=== PATIENT | female | born 1995 | race American Indian/Alaskan Native ===

== ENCOUNTER 2017-06-10 17:08 | Emergency (ER) | payer MEDICAID ==
[2017-06-10 17:08] VITALS: BMI 38.3
--- NOTE | 2017-06-10 17:54 | ED PDOC ---
HPI: Female Pain Time Seen by Provider: 06/10/17 17:27 Chief Complaint (Nursing): Female Genitourinary History Per: Patient (states having recurrent vaginal bleeding since her elective at [facility] in early April. She is now . She was seen in the ER at [place] where she had blood work and TV ultrasound. She was told to followup with document manager. Since being home after her evaluation at 2-3am, she has had to change her pads two times. Pictures show that they are moderately soaked. She denies pain or fever.) History/Exam Limitations: no limitations Onset/Duration Of Symptoms: Waxing/Waning Current Symptoms Are (Timing): Still Present Severity: Mild Quality Of Discomfort: Unable To Describe Associated Symptoms: denies: Fever, Chills, Nausea, Vomiting, Diarrhea Past Medical History Reviewed: Historical Data, Nursing Documentation, Vital Signs Vital Signs: Last Vital Signs Temp 98.9 F 06/10/17 17:21 Pulse 57 L 06/10/17 17:21 Resp 20 06/10/17 17:21 BP 118/64 06/10/17 17:21 Pulse Ox 100 06/10/17 17:21 - Medical History PMH: No Chronic Diseases - Surgical History Surgical History: Cholecystectomy - Family History Family History: States: No Known Family Hx - Living Arrangements Living Arrangements: With Family - Home Medications Home Medications: Ambulatory Orders Medication Instructions Recorded Unobtainable 06/09/17 - Allergies Allergies/Adverse Reactions: Allergies Allergy/AdvReac Type Severity Reaction Status Date / Time ibuprofen Allergy ITCHING Verified 06/09/17 21:43 Review of Systems ROS Statement: Except As Marked, All Systems Reviewed And Found Negative Constitutional: Negative for: Fever, Chills Gastrointestinal: Negative for: Nausea, Vomiting, Abdominal Pain, Diarrhea, Constipation Genitourinary Female: Negative for: Dysuria Musculoskeletal: Negative for: Neck Pain, Shoulder Pain Neurological: Negative for: Weakness Physical Exam - Reviewed Nursing Documentation Reviewed: Yes Vital Signs Reviewed: Yes - Physical Exam Appears: Positive for: Well, Non-toxic, No Acute Distress Head Exam: Positive for: ATRAUMATIC, NORMAL INSPECTION, NORMOCEPHALIC Skin: Positive for: Normal Color, Warm, DRY Eye Exam: Positive for: Normal appearance ENT: Positive for: Normal ENT Inspection Neck: Positive for: Normal Gastrointestinal/Abdominal: Positive for: Normal Exam, Bowel Sounds, Soft. Negative for: Tenderness, Guarding Back: Positive for: Normal Inspection Extremity: Positive for: Normal ROM Neurologic/Psych: Positive for: Alert, Oriented - ECG O2 Sat by Pulse Oximetry: 100 Disposition - Clinical Impression Clinical Impression: Elective , Vaginal bleeding - Patient ED Disposition Is Patient to be Admitted: Transfer of Care Doctor Will See Patient In The: Office Counseled Patient/Family Regarding: Diagnosis, Need For Followup - Disposition Disposition: Routine/Home Disposition Time: 18:50 Condition: STABLE Forms: [employer] ([place] Islander) Patient Signed Over To: Jefe Stevens
--- NOTE | 2017-06-10 19:31 | ED PDOC ---
- Laboratory Results Result Diagrams: 06/10/17 20:17 - ECG O2 Sat by Pulse Oximetry: 100 (RA) Pulse Ox Interpretation: Normal Medical Decision Making Medical Decision Making: Time: 1899 --Patient was endorsed to provider by Dr. Cinthia Brower. Pending repeat CBC bloodwork and MANAGER DRUG SAFETY consult. Time: 2049 --Labs: no significant abnormality noted. --US Pelvis FINDINGS: Uterus/cervix: Uterus measures approximately 8.5 x 4 x 4.8 cm. There is a small mass in the fundal portion of the endometrium, 1.1 x 2.2 cm. Nodule is heterogeneous with a low attenuation focus. There is no color flow in the endometrial mass on color imaging. Motion of the mass was seen at real-time. Cervix measures 4 cm in length. Right ovary: Right ovary measures approximately 3.23 x 2.51 x 2.19 cm.There is expected blood flow on Doppler imaging Left ovary: Left ovary measures approximately 2.38 x 1.90 x 2.24 cm. There are multiple small follicles. There is intraovarian blood flow. Free fluid: There is trace free fluid in cul-de-sac IMPRESSION: Small mass in the endometrial canal of the uterine fundus without vascularity, clot versus devascularized products of conception; trace free fluid, no torsion. Gynecologic consultation advised. Time: 2099 --Upon CLINICAL AUDITOR evaluation by Dr. Carlton Ahumada, patient is medically stable and requires no further treatment in the ED at this time. Patient will be discharged home. Counseling was provided and all questions were answered regarding diagnosis and need for [facility]. There is agreement to discharge plan. Return if symptoms persist or worsen. Clinical Impression: Vaginal bleeding S/P termination Scribe Attestation: Documented by Snow Huffman, acting as a scribe for Jefe Stevens MD. Provider Scribe Attestation: All medical record entries made by the Stephon were at my direction and personally dictated by me. I have reviewed the chart and agree that the record accurately reflects my personal performance of the history, physical exam, medical decision making, and the department course for this patient. I have also personally directed, reviewed, and agree with the discharge instructions and disposition. Disposition Doctor Will See Patient In The: Office Counseled Patient/Family Regarding: Studies Performed, Diagnosis, Need For Followup - Clinical Impression Clinical Impression: Elective , Vaginal bleeding - POA Present On Arrival: None - Disposition [facility] Disposition: Routine/Home Disposition Time: 21:00 Condition: STABLE Forms: [employer] (Belarusian)
[2017-06-10 20:20] LABS: BASO # 0.1 K/uL (0.0-0.2); BASO % 1.1 % (0.0-2.0); EOS # 0.2 K/uL (0.0-0.7); EOS % 2.9 % (0.0-4.0); HEMATOCRIT 39.9 % (34.0-47.0); LYMPH # 2.2 K/uL (1.0-4.3); LYMPH % 30.2 % (20.0-40.0); MEAN CELL VOLUME 88.4 fl (81.0-99.0); MEAN CORPUSCULAR HEMOGLOBIN 29.8 pg (27.0-31.0); MEAN CORPUSCULAR HGB CONC 33.7 g/dL (33.0-37.0); MEAN PLATELET VOLUME 7.8 fl (7.2-11.7); MONO # 0.7 K/uL (0.0-0.8); MONO % 9.6 % (0.0-10.0); NEUT # 4.1 K/uL (1.8-7.0); NEUT % 56.2 % (50.0-75.0); NRBC % 0.1 % (0.0-0.0); RED CELL DISTRIBUTION WIDTH 13.5 % (11.5-14.5); WHITE BLOOD COUNT 7.3 K/uL (4.8-10.8)
--- NOTE | 2017-06-10 20:50 | US ---
EXAM: US Pelvis Complete, Transabdominal CLINICAL HISTORY: 22 years old, female; Signs and symptoms; Other: Vag bleeding; Patient HX: S/P (pill) apr 2017; Additional info: Vag bld in preg TECHNIQUE: Real-time transabdominal pelvic ultrasound (complete) with image documentation. COMPARISON: There are no prior studies for comparison. FINDINGS: Uterus: Uterus is anteflexed. The uterus measures approximately 7.7 x 4.7 x 5.7 cm. Endometrium is difficult to evaluate. Endometrium measures roughly 13 mm. Right ovary: Right ovary could not be identified Left ovary: Left ovary could not be identified Free fluid: There is no free fluid. Bladder: Bladder is empty which limits evaluation IMPRESSION: Limited transabdominal ultrasound due to incomplete bladder distention; anteflexed uterus EXAM: US Pelvis, Transvaginal EXAM DATE/TIME: 06/10/2017 8:15 PM CLINICAL HISTORY: 22 years old, female; Signs and symptoms; Other: Vag bleeding; Patient HX: S/P (pill) apr 2017; Additional info: Vag bld in preg TECHNIQUE: Real-time transvaginal pelvic ultrasound (complete) with image documentation. Transvaginal imaging was used for better evaluation of the endometrium and adnexa. COMPARISON: There are no prior studies for comparison. FINDINGS: Uterus/cervix: Uterus measures approximately 8.5 x 4 x 4.8 cm. There is a small mass in the fundal portion of the endometrium, 1.1 x 2.2 cm. Nodule is heterogeneous with a low attenuation focus. There is no color flow in the endometrial mass on color imaging. Motion of the mass was seen at real-time. Cervix measures 4 cm in length. Right ovary: Right ovary measures approximately 3.23 x 2.51 x 2.19 cm.There is expected blood flow on Doppler imaging Left ovary: Left ovary measures approximately 2.38 x 1.90 x 2.24 cm. There are multiple small follicles. There is intraovarian blood flow. Free fluid: There is trace free fluid in cul-de-sac IMPRESSION: Small mass in the endometrial canal of the uterine fundus without vascularity, clot versus devascularized products of conception; trace free fluid, no torsion Gynecologic consultation advised
[2017-06-10 21:34] LABS: RBC URINE 2 /hpf (0-3); URINE BILIRUBIN NEGATIVE (NEGATIVE); URINE BLOOD MODERATE (NEGATIVE); URINE COLOR STRAW (YELLOW); URINE GLUCOSE (UA) NEG (Normal); URINE KETONE NEGATIVE (NEGATIVE); URINE LEUKOCYTE ESTERASE NEG Leu/uL (Negative); URINE PROTEIN NEGATIVE (NEGATIVE); URINE UROBILINOGEN 0.2-1.0 mg/dL (0.2-1.0); WBC URINE < 1 /hpf (0-5)
[2017-06-10 22:06] VITALS: BP 122/68; PULSE 85; RESP 18; TEMP 97.8
--- NOTE | 2017-06-10 22:16 | CP.PCM.CON ---
History of Present Illness - History of Present Illness History of Present Illness: Patient is a 22-year-old 1 para 101 With an history of a medical termination on 04/20/2017 patient was treated with an Mifepristone and Cytotec. Patient states she was advised to have a 2 week follow-up after treatment but was unable to do so. Patient states that since the medical termination she has had intermittent vaginal bleeding. Patient states that on May 27 she began her to take control pills. Since taking the OCPs she has noticed an increase in her bleeding and most recently the past 2 days the bleeding has been heavier she denies painful cramps and is concerned for possibility of retained products of conception. Past OB history: Spontaneous vaginal delivery in December 2015 Past surgical history: Laparoscopic cholecystectomy. Allergies: Ibuprofen causing a rash Medications: Oral contraceptive pills name unknown Social history: Positive tobacco use daily (one half pack per day) Alcohol use approximately 1 month to twice per month; denies illicit drug use Review of Systems - Constitutional Constitutional: absent: Chills, Excessive Sweating, Lethargy, Weight Loss - Cardiovascular Cardiovascular: absent: Chest Pain, Chest Pain at Rest, Chest Pain with Activity , Dyspnea on Exertion, Palpitations - Respiratory Respiratory: absent: Wheezing - Gastrointestinal Gastrointestinal: absent: Abdominal Pain, Belching, Bloating, Change in Bowel Habits, Constipation, Cramping - Genitourinary Genitourinary: absent: Difficulty Urinating, Dysuria - Reproductive: Female Reproductive:Female: Normal Menses. absent: Amenorrhea, Menses Variable, Pelvic Pain - Menstruation Menstruation: absent: Cycle <21 Days, Cycle >35 Days, Cycle Variable, Menses Variable Past Patient History - Tetanus Immunizations Tetanus Immunization: Unknown - Past Social History Smoking Status: Light Smoker < 10 Cigarettes Daily - PSYCHIATRIC Hx Psychophysiologic Disorder: No Hx Substance Use: No - SURGICAL HISTORY Hx Cholecystectomy: Yes Meds Allergies/Adverse Reactions: Allergies Allergy/AdvReac Type Severity Reaction Status Date / Time ibuprofen Allergy ITCHING Verified 06/09/17 21:43 Physical Exam - Constitutional Appears: Well, Non-toxic, No Acute Distress - Head Exam Head Exam: ATRAUMATIC, NORMAL INSPECTION, NORMOCEPHALIC - Respiratory Exam Respiratory Exam: NORMAL BREATHING PATTERN - GI/Abdominal Exam GI & Abdominal Exam: Soft. absent: Diminished Bowel Sounds, Firm, Guarding, Rebound, Tenderness - Exam External exam: NORMAL EXTERNAL EXAM. absent: Lacerations, Lesions Speculum exam: Vaginal Bleeding (scant vaginal blood c/w menstrual type bleeding ). absent: Cervical Discharge, Foreign Body, Laceration Bimanual exam: NORMAL BIMANUAL EXAM. absent: Cervical Motion Tendernes, Uterine Enlargement, Uterine Tenderness - Extremities Exam Extremities exam: Positive for: normal inspection Results - Vital Signs Recent Vital Signs: Last Vital Signs Temp 97.8 F 06/10/17 22:05 Pulse 85 06/10/17 22:05 Resp 18 06/10/17 22:05 BP 122/68 06/10/17 22:05 Pulse Ox 98 06/10/17 22:05 - Labs Result Diagrams: 06/10/17 20:17 Labs: Laboratory Results - last 24 hr 06/10/17 06/10/17 20:17 20:17 WBC 7.3 RBC 4.51 Hgb 13.5 Hct 39.9 MCV 88.4 MCH 29.8 MCHC 33.7 RDW 13.5 Plt Count 270 MPV 7.8 Neut % (Auto) 56.2 Lymph % (Auto) 30.2 Sac % (Auto) 9.6 Eos % (Auto) 2.9 Baso % (Auto) 1.1 Neut # 4.1 Lymph # 2.2 Sac # 0.7 Eos # 0.2 Baso # 0.1 Beta HCG, Quant < 2.39 - Imaging and Cardiology US - abdomen Status: Image reviewed by me, Report reviewed by me (Pelvic us showing avascular tissue in fundus 1x2cm, avascular c/w blood clot vs retained poc) Assessment & Plan - Assessment and Plan (Free Text) Assessment: Impression S/P Medical TOP Day #51 Irregular Vaginal Bleeding most likely BTB on ocps Plan Rx Provera 10 mg 1 by mouth daily 10 day. Patient also given the option of control pills to manage and abnormal uterine bleeding patient declined. She understands that Provera is not a contraceptive and states she will refrain from being sexually active until she is on returns to her prescription of control. Patient advised is the feeding and becomes heavy to return to the ED.
[2017-06-10 22:41] VITALS: O2SAT 100
== END 2017-06-10 22:11 | disposition home or self-care (01) ==
LOC: H.ER 17:08
DX: O03.9 Complete or unspecified spontaneous abortion without complication (principal)